=== PATIENT | male | born 1980 | race Hispanic/Latino ===

== ENCOUNTER 2021-09-10 16:33 | Emergency (ER) | payer SELFPAY ==
[2021-09-10] MEDS ORDERED: Ketorolac Tromethamine 30 MG/ML VIAL ONE (18:46)
== END 2021-09-10 19:39 | disposition home or self-care (01) ==
LOC: ERS 16:33
DX: M25.562 Pain in left knee (principal); E78.5 Hyperlipidemia, unspecified; Z79.899 Other long term (current) drug therapy
CPT/HCPCS: 96372; J1885

== ENCOUNTER 2023-08-13 12:38 | Inpatient (IN) | payer SELFPAY ==
[~2023-08-13 12:38] MED LIST: Iopamidol-370 76% 500 ML MDV (1 ML CHARGE) ONE
[2023-08-13 13:06] LABS: #Basophils 0.1 thou/uL (0.0-0.2); #Eosinphils 0.2 thou/uL (0.0-0.7); #Neutrophils 4.2 thou/uL (1.40-6.50); %Basophils 0.9 % (0.0-1.0); %Eosinophils 2.1 % (0.0-10.0); %Lymphocytes 43.7 % (21.0-51.0); %Monocytes 9.8 % (0.0-10.0); %Neutrophils 42.7 % (42.0-75.0); Hematocrit 43.5 % (42.0-52.0); Hemoglobin 14.9 g/dL (14.0-18.0); Mean Corpuscular HGB CONC 34.3 g/dL (32.0-36.0); Mean Corpuscular Hemoglobin 29.1 pg (27.0-31.0); Mean Platelet Volume 9.7 fL (7.4-10.4); Platelet Count 272 10x3/uL (130-400); RBC Distribution Width 12.7 % (11.5-14.5); Red Blood Cell (RBC) Count 5.12 mill/uL (4.70-6.10); White Blood Cell (WBC) Count 9.9 10x3/uL (4.8-10.8)
[2023-08-13 13:17] LABS: INR-International Normal Ratio 0.9; Prothrombin Time 12.3 sec (12.0-14.7)
[2023-08-13 13:22] LABS: PTT 20.2 sec (22.9-36.1)
[2023-08-13 13:24] LABS: ALT (SGPT) 27 U/L (8-55); AST (SGOT) 11 U/L (5-34); Albumin 4.7 g/dL (3.5-5.0); Alkaline Phosphatase 76 U/L (40-110); Anion Gap 15 mmol/L (10-20); BUN (Urea Nitrogen) 21 mg/dL (8.9-20.6); Bilirubin, Total 0.4 mg/dL (0.2-1.2); Calc. Creatinine Clearance 0 mL/min (70-130); Carbon Dioxide 22 mmol/L (22-29); Chloride 107 mmol/L (98-107); Estimated GFR 111; Globulin 2.8 g/dL (2.4-3.5); Glucose 116 mg/dL (70-105); Potassium 3.9 mmol/L (3.5-5.1); Protein, Total 7.5 g/dL (6.0-8.3); Sodium 140 mmol/L (136-145)
[2023-08-13 13:28] LABS: Troponin I Less than 0.010 ng/mL (< 0.028)
[2023-08-13] MEDS ORDERED: Ketorolac Tromethamine 30 MG/ML VIAL ONE (14:09)
[2023-08-13 14:41] LABS: Bacteria/HPF None Seen HPF (None Seen); Bilirubin Negative (Negative); Blood, Urine Negative (Negative); CAUTI Indications for Culture Alt mental st,lethar; Clarity Clear (Clear); Glucose, Urine (Dipstick) Normal (Negative); Ketone, Urine Negative (Negative); Leukocyte Negative Leu/uL (Negative); Nitrite Negative (Negative); Protein, Urine (Dipstick) Negative (Neg-Trace); RBC/HPF None Seen HPF (0-3); Squamous Epithelial None Seen HPF (0-3); Urobilinogen Normal mg/dL (Less than 2); WBC/HPF 0-3 HPF (0-3); pH, Urine 5.5 (5.0-9.0)
[2023-08-13 14:42] LABS: Specific Gravity, Urine 1.045 (1.002-1.036)
[2023-08-13 14:43] LABS: Urine Culture Reflex No No
[2023-08-13 15:01] LABS: SARS-CoV-2 NAA Rapid Test Not Detected (NotDetected)
[2023-08-13] MEDS ORDERED: Meclizine HCl 25 MG TAB ONE (15:31)
[2023-08-13] MEDS ORDERED: Acetaminophen 500 MG TAB ONE (15:31)
[2023-08-13] MEDS ORDERED: Acetaminophen 325 MG TAB PO PRN (17:27)
[2023-08-13] MEDS ORDERED: Ondansetron ODT 4 MG TAB PO PRN (17:27)
[2023-08-13] MEDS ORDERED: Meclizine HCl 25 MG TAB PO PRN (17:33)
[2023-08-13 17:55] LABS: Amphetamine Not Detected (NotDetected); Barbiturates Screen Not Detected (NotDetected); Benzodiazepine Screen Not Detected (NotDetected); Cocaine Metabolite Screen Not Detected (NotDetected); Methadone Not Detected (NotDetected); Methamphetamine Not Detected (NotDetected); Opiate Screen Not Detected (NotDetected); Oxycodone Screen Not Detected (NotDetected); Phencyclidine (PCP) Not Detected (NotDetected); THC/Cannabinoid Screen Not Detected (NotDetected); Tricyclic Screen Not Detected (NotDetected)
[2023-08-13] MEDS ORDERED: Aspirin 81 mg Enteric Coated Tablet PO SCH (18:00)
[2023-08-13 19:00] VITALS: BMI 37.7
[2023-08-13] MEDS: Atorvastatin Calcium 40 MG TAB PO SCH (20:56)
[2023-08-14 04:42] LABS: Cardiac Risk 4.7 (Less than 4.5)
[2023-08-14] MEDS ORDERED: Aspirin 81 mg Enteric Coated Tablet PO SCH ×2 (09:00→17:15)
[2023-08-14] MEDS: Atorvastatin Calcium 40 MG TAB PO SCH (20:27)
[2023-08-15] MEDS ORDERED: Aspirin 325 mg Enteric Coated Tablet PO SCH (09:00)
[2023-08-15 12:26] VITALS: BP 156/77; TEMP 98.1
[2023-08-16] MEDS ORDERED: FLU VACC QS2023-24(6MOS UP)/PF 60 MCG/0.5 ML SYRINGE IM ONE (09:00)
== END 2023-08-15 14:25 | disposition home or self-care (01) | DRG 65 ==
LOC: ERS 12:38 → 2SE 17:10
PROVIDERS: ADMIT Internal Medicine; ATTEND Internal Medicine
DX: I63.9 Cerebral infarction, unspecified (principal); G81.91 Hemiplegia, unspecified affecting right dominant side; E78.5 Hyperlipidemia, unspecified; Z11.52 Encounter for screening for COVID-19
CPT/HCPCS: 36415; 36416; 70450; 70496; 70498; 70551; 71045; 80053; 80061; 80306; 81001; 83880; 84443; 84484; 85025; 85610; 85730; 87804; 93005; 93306; 96374; J1650; J1885; Q9967; U0002

== ENCOUNTER 2024-04-08 17:51 | Emergency (ER) | payer SELFPAY ==
[2024-04-08] MEDS ORDERED: Morphine 4 MG/ML VIAL ONE (18:35)
[2024-04-08] MEDS ORDERED: Ondansetron PF 4 MG/2 ML Vial ONE (18:36)
== END 2024-04-08 21:40 | disposition home or self-care (01) ==
LOC: EDBD 17:51 → ERS 17:51
DX: S16.1XXA Strain of muscle, fascia and tendon at neck level, initial encounter (principal); S83.92XA Sprain of unspecified site of left knee, initial encounter; S83.91XA Sprain of unspecified site of right knee, initial encounter; Z55.0 Illiteracy and low-level literacy; V59.40XA Driver of pick-up truck or van injured in collision with unspecified motor vehicles in traffic accident, initial encounter
CPT/HCPCS: 70450; 71045; 72125; 96374; 96375; J2270; J2405